=== PATIENT | male | born 1965 | race Caucasian/White ===

== ENCOUNTER 2019-06-11 08:18 | Outpatient (CLI) | payer OTHER ==
[2019-06-11 09:03] LABS: CLARITY,URINE CLEAR (Clear); COLOR,URINE YELLOW (Yellow); GLUCOSE, URINE NEGATIVE (Neg); KETONES,URINE NEGATIVE (Neg); LEUKOCYTE ESTERASE ,URINE NEGATIVE (Neg); NITRITES, URINE NEGATIVE (Neg); OCCULT BLOOD,URINE NEGATIVE (Neg); PH,URINE 6.5 (4.8-8.0); PROTEIN,URINE NEGATIVE (Neg); UROBILINOGEN,URINE 0.2 E.U/dL (0.2-1.0)
[2019-06-11 09:09] LABS: UA COLLECTION TYPE CLN CATCH MIDSTREAM
[2019-06-11 09:16] LABS: ALANINE AMINOTRANSFERASE 113 U/L (12-78); ALBUMIN 4.2 G/DL (3.4-5.0); ALBUMIN/GLOBULIN RATIO 0.9 (1.1-1.5); ALKALINE PHOSPHATASE 67 IU/L (46-116); ANION GAP 5 (8-16); ASPARTATE AMINO TRANSFERASE 53 U/L (10-37); BILIRUBIN,TOTAL 0.6 MG/DL (0.1-1.0); BLOOD UREA NITROGEN 12 MG/DL (7-18); BUN/CREATININE RATIO 10.2 (5.4-32.0); CALCIUM 9.2 MG/DL (8.5-10.1); CHLORIDE 106 MMOL/L (99-107); CHOL/HDL RATIO 2.6 (0.00-4.99); CHOLESTEROL 164 MG/DL (0-200); CREATININE 1.18 MG/DL (0.60-1.10); GLUCOSE 112 MG/DL (70-104); HDL CHOLESTEROL 63 MG/DL (35-60); LDL CHOLESTEROL 76 MG/DL (50-100); MAGNESIUM 1.7 MG/DL (1.5-2.4); POTASSIUM 4.2 MMOL/L (3.5-5.1); SODIUM 144 MMOL/L (135-145); TOTAL CARBON DIOXIDE 32.6 MMOL/L (24-32); TOTAL PROTEIN 8.9 G/DL (6.4-8.2); TRIGLYCERIDES 144 MG/DL (20-135); eGFR 64 ML/MIN
[2019-06-11 09:17] LABS: BASOPHILS # (AUTO) 0.1 X10'3 (0-0.2); BASOPHILS % (AUTO) 1.5 % (0-1); EOSINOPHILS # (AUTO) 0.6 X10'3 (0-0.9); EOSINOPHILS % (AUTO) 6.9 % (0-6); HEMATOCRIT 46.5 % (42.0-52.0); HEMOGLOBIN 16.2 g/dl (14.0-17.9); LYMPHOCYTES # (AUTO) 2.8 X10'3 (1.1-4.8); LYMPHOCYTES % (AUTO) 32.6 % (21-51); MEAN CORPUSCULAR HEMOGLOBIN 33.1 PG (27.0-31.0); MEAN CORPUSCULAR HGB CONC 34.7 g/dL (33.0-36.5); MEAN CORPUSCULAR VOLUME 95.3 FL (78-98); MONOCYTES # (AUTO) 1.2 X10'3 (0-0.9); MONOCYTES % (AUTO) 14.3 % (2-12); NEUTROPHILS # (AUTO) 3.8 X10'3 (1.8-7.7); NEUTROPHILS % (AUTO) 44.7 % (42-75); PLATELET COUNT 258 X10'3 (140-440); RED BLOOD COUNT 4.88 X10'6 (4.70-6.10); RED CELL DISTRIBUTION WIDTH 13.3 % (11.5-14.5); WHITE BLOOD COUNT 8.6 X10'3 (4.5-11.0)
[2019-06-12 11:10] LABS: ALBUMIN 4.2 g/dL (2.9-4.4); BETA GLOBULIN 1.4 g/dL (0.7-1.3); GAMMA GLOBULIN 1.7 g/dL (0.4-1.8); GLOBULIN, TOTAL 4.2 g/dL (2.2-3.9); M-SPIKE Not Observed g/dL (Not Observed); PROTEIN, TOTAL, SERUM 8.4 g/dL (6.0-8.5)
== END 2019-06-11 23:59 | disposition home or self-care (01) ==
LOC: LAB 08:18
PROVIDERS: ATTEND Family Medicine
DX: R00.2 Palpitations (principal)
CPT/HCPCS: 36415; 80053; 80061; 81003; 83735; 84155; 84165; 84402; 84403; 84439; 84443; 85025

== ENCOUNTER 2020-02-17 13:15 | Outpatient (CLI) | payer BC ==
[2020-02-17 14:13] LABS: BASOPHILS # (AUTO) 0.1 X10'3 (0-0.2); BASOPHILS % (AUTO) 0.4 % (0-1); EOSINOPHILS % (AUTO) 0.2 % (0-6); HEMATOCRIT 45.3 % (42.0-52.0); HEMOGLOBIN 15.3 g/dl (14.0-17.9); LYMPHOCYTES # (AUTO) 1.3 X10'3 (1.1-4.8); LYMPHOCYTES % (AUTO) 9.3 % (21-51); MEAN CORPUSCULAR HEMOGLOBIN 32.7 PG (27.0-31.0); MEAN CORPUSCULAR HGB CONC 33.7 g/dL (33.0-36.5); MEAN CORPUSCULAR VOLUME 96.9 FL (78-98); MEAN PLATELET VOLUME 7.9 FL (7.4-10.4); MONOCYTES # (AUTO) 1.9 X10'3 (0-0.9); NEUTROPHILS # (AUTO) 10.5 X10'3 (1.8-7.7); NEUTROPHILS % (AUTO) 76.1 % (42-75); PLATELET COUNT 224 X10'3 (140-440); RED BLOOD COUNT 4.67 X10'6 (4.70-6.10); RED CELL DISTRIBUTION WIDTH 13.3 % (11.5-14.5); WHITE BLOOD COUNT 13.7 X10'3 (4.5-11.0)
[2020-02-17 14:28] LABS: ALANINE AMINOTRANSFERASE 115 U/L (12-78); ALBUMIN 4.3 G/DL (3.4-5.0); ALKALINE PHOSPHATASE 64 IU/L (46-116); AMYLASE 66 U/L (25-115); ANION GAP 8 (8-16); ASPARTATE AMINO TRANSFERASE 51 U/L (10-37); BILIRUBIN,TOTAL 0.9 MG/DL (0.1-1.0); BLOOD UREA NITROGEN 9 MG/DL (7-18); BUN/CREATININE RATIO 8.5 (5.4-32.0); CALCIUM 9.6 MG/DL (8.5-10.1); CHLORIDE 101 MMOL/L (99-107); CREATININE 1.06 MG/DL (0.60-1.10); GLUCOSE 138 MG/DL (70-104); LIPASE 107 U/L (73-393); POTASSIUM 4.4 MMOL/L (3.5-5.1); SODIUM 138 MMOL/L (135-145); TOTAL CARBON DIOXIDE 28.8 MMOL/L (24-32); TOTAL PROTEIN 8.5 G/DL (6.4-8.2); eGFR 73 ML/MIN
[2020-02-17] MEDS ORDERED: NO HOME MEDS (19:27)
== END 2020-02-17 23:59 | disposition home or self-care (01) ==
LOC: RAD 13:15
PROVIDERS: ATTEND Family Medicine
DX: K76.0 Fatty (change of) liver, not elsewhere classified (principal); R10.13 Epigastric pain
CPT/HCPCS: 36415; 76700; 80053; 82150; 83690; 85025

== ENCOUNTER 2020-02-17 16:03 | Inpatient (IN) | payer BC ==
[~2020-02-17] VITALS: Ht 172.7 cm; Wt 85.0 kg
[2020-02-17] MEDS ORDERED: iohexol 300mg/ml 100ml inj. ONE (17:15)
[2020-02-17 17:49] LABS: EOSINOPHILS % (AUTO) 0.1 % (0-6); HEMATOCRIT 44.8 % (42.0-52.0); HEMOGLOBIN 15.4 g/dl (14.0-17.9); MEAN CORPUSCULAR HEMOGLOBIN 33.3 PG (27.0-31.0); MEAN CORPUSCULAR HGB CONC 34.3 g/dL (33.0-36.5); MEAN CORPUSCULAR VOLUME 97.1 FL (78-98); RED BLOOD COUNT 4.61 X10'6 (4.70-6.10)
[2020-02-17] MEDS ORDERED: normal saline 1000ML IV soln IVB ONE (17:50)
[2020-02-17] MEDS ORDERED: ondansetron/PF 4mg/2ml inj IV ONE (17:50)
[2020-02-17 17:51] LABS: BASOPHILS % (AUTO) 0.3 % (0-1); LYMPHOCYTES # (AUTO) 1.4 X10'3 (1.1-4.8); LYMPHOCYTES % (AUTO) 10.3 % (21-51); MEAN PLATELET VOLUME 8.1 FL (7.4-10.4); MONOCYTES % (AUTO) 14.9 % (2-12); NEUTROPHILS # (AUTO) 10.2 X10'3 (1.8-7.7); NEUTROPHILS % (AUTO) 74.4 % (42-75); PLATELET COUNT 208 X10'3 (140-440); RED CELL DISTRIBUTION WIDTH 13.3 % (11.5-14.5); WHITE BLOOD COUNT 13.7 X10'3 (4.5-11.0)
[2020-02-17 17:58] LABS: PARTIAL THROMBOPLASTIN TIME 27 SECONDS (22-32)
[2020-02-17 18:01] LABS: ALANINE AMINOTRANSFERASE 111 U/L (12-78); ALBUMIN 4.1 G/DL (3.4-5.0); ALKALINE PHOSPHATASE 59 IU/L (46-116); ANION GAP 7 (8-16); ASPARTATE AMINO TRANSFERASE 52 U/L (10-37); BLOOD UREA NITROGEN 9 MG/DL (7-18); BUN/CREATININE RATIO 8.1 (5.4-32.0); CALCIUM 9.6 MG/DL (8.5-10.1); CHLORIDE 102 MMOL/L (99-107); CREATININE 1.11 MG/DL (0.60-1.10); GLUCOSE 139 MG/DL (70-104); LIPASE 108 U/L (73-393); POTASSIUM 3.8 MMOL/L (3.5-5.1); SODIUM 138 MMOL/L (135-145); TOTAL CARBON DIOXIDE 29.3 MMOL/L (24-32); TOTAL PROTEIN 8.3 G/DL (6.4-8.2); eGFR 69 ML/MIN
[2020-02-17] MEDS: morphine 4 MG/ML inj SYRINge IV PRN ×2 (18:09→21:05)
[2020-02-17] MEDS ORDERED: morphine 4 MG/ML inj SYRINge IV ONE (19:15)
[2020-02-17] MEDS ORDERED: piperacillin/tazo 3.375gm/50ml 50 ML IV ONE (19:15)
[2020-02-17] MEDS ORDERED: NO HOME MEDS (19:27)
[2020-02-17] MEDS ORDERED: ondansetron/PF 4mg/2ml inj IV PRN (21:00)
[2020-02-17] MEDS ORDERED: potassium Cl 20 mEq SR tablet PO PRN ×2 (21:00)
[2020-02-17] MEDS ORDERED: morphine 2 MG/ML inj. syringe IV PRN (21:00)
[2020-02-17] MEDS ORDERED: magnesium hydroxide 30ml (MOM) UD suspension PO PRN (21:00)
[2020-02-17] MEDS ORDERED: potassium CL 10mEq/100ml bag 100 ML IV PRN ×2 (21:00)
[2020-02-17] MEDS ORDERED: mag hydrox/Alum hydrox/simeth 30ml oral suspension PO PRN (21:00)
[2020-02-17] MEDS: normal saline 1000ml 1,000 ML IV SCH ×2 (21:05→22:55)
--- NOTE | 2020-02-17 22:40 | NUR ---
Received report from Vinnie LOVE from the ER. Patient arrived on unit chandrika wheelchair at 2230, s.l., room air, vss, a/o, no signs of distress, will continue to monitor
[2020-02-17] MEDS: morphine 2 MG/ML inj. syringe IV PRN (22:57)
[2020-02-17] MEDS: piperacillin/tazo 3.375gm/50ml 50 ML IV SCH (23:39)
[2020-02-18] VITALS (17 sets, daily range): BP systolic 119–162; BP diastolic 71–95
[2020-02-18] MEDS: morphine 2 MG/ML inj. syringe IV PRN ×4 (03:53→20:46)
[2020-02-18 06:09] LABS: BASOPHILS % (AUTO) 0.2 % (0-1); EOSINOPHILS % (AUTO) 0.2 % (0-6); HEMATOCRIT 43.3 % (42.0-52.0); HEMOGLOBIN 14.5 g/dl (14.0-17.9); LYMPHOCYTES # (AUTO) 1.4 X10'3 (1.1-4.8); LYMPHOCYTES % (AUTO) 10.9 % (21-51); MEAN CORPUSCULAR HEMOGLOBIN 32.5 PG (27.0-31.0); MEAN CORPUSCULAR HGB CONC 33.4 g/dL (33.0-36.5); MEAN CORPUSCULAR VOLUME 97.2 FL (78-98); MEAN PLATELET VOLUME 8.3 FL (7.4-10.4); MONOCYTES % (AUTO) 16.1 % (2-12); NEUTROPHILS # (AUTO) 9.2 X10'3 (1.8-7.7); NEUTROPHILS % (AUTO) 72.6 % (42-75); PLATELET COUNT 182 X10'3 (140-440); RED BLOOD COUNT 4.46 X10'6 (4.70-6.10); RED CELL DISTRIBUTION WIDTH 13.4 % (11.5-14.5); WHITE BLOOD COUNT 12.7 X10'3 (4.5-11.0)
[2020-02-18 06:14] LABS: PARTIAL THROMBOPLASTIN TIME 28 SECONDS (22-32)
--- NOTE | 2020-02-18 06:25 | NUR ---
Received report from Alexa LOVE, [facility] care.
[2020-02-18 06:34] LABS: ALANINE AMINOTRANSFERASE 120 U/L (12-78); ALBUMIN 3.6 G/DL (3.4-5.0); ALBUMIN/GLOBULIN RATIO 0.9 (1.1-1.5); ALKALINE PHOSPHATASE 55 IU/L (46-116); ANION GAP 11 (8-16); ASPARTATE AMINO TRANSFERASE 65 U/L (10-37); BILIRUBIN,TOTAL 1.1 MG/DL (0.1-1.0); BLOOD UREA NITROGEN 11 MG/DL (7-18); BUN/CREATININE RATIO 9.6 (5.4-32.0); CALCIUM 9.4 MG/DL (8.5-10.1); CHLORIDE 105 MMOL/L (99-107); CREATININE 1.15 MG/DL (0.60-1.10); GLUCOSE 127 MG/DL (70-104); SODIUM 141 MMOL/L (135-145); TOTAL CARBON DIOXIDE 25.2 MMOL/L (24-32); TOTAL PROTEIN 7.7 G/DL (6.4-8.2); eGFR 66 ML/MIN
--- NOTE | 2020-02-18 06:41 | NUR ---
Problems reprioritized. Patient report given, questions answered & plan of care reviewed with Bren LOVE.
[2020-02-18] MEDS ORDERED: BUPIVAcaine/PF 2.5 mg/ml (0.25%) 30ml vial ONE (07:08)
[2020-02-18] MEDS ORDERED: ceFAZolin 1000mg inj ONE (07:08)
[2020-02-18] MEDS ORDERED: INDOCYANINE GREEN 25 MG/10 ML VIAL IV ONE (07:15)
[2020-02-18] MEDS ORDERED: ondansetron/PF 4mg/2ml inj IV PRN ×3 (07:30→12:00)
[2020-02-18] MEDS ORDERED: meperidine/PF 25mg/ml syringe IV PRN ×5 (07:30→10:40)
[2020-02-18] MEDS ORDERED: ringers solution, lacted 1,000 ML IV SCH ×2 (07:30→10:40)
[2020-02-18] MEDS ORDERED: proCHLORperazine 10 MG/2 ml inj IV PRN ×2 (07:30→10:40)
[2020-02-18] MEDS ORDERED: morphine 2 MG/ML inj. syringe IV PRN ×2 (07:30→10:40)
[2020-02-18] MEDS ORDERED: morphine 4 MG/ML inj SYRINge IV PRN ×2 (07:30→10:40)
[2020-02-18] MEDS: K and/or MAG REPLACEMENT MC SCH ×3 (08:00→20:00)
[2020-02-18] MEDS: piperacillin/tazo 3.375gm/50ml 50 ML IV SCH ×3 (08:00→23:41)
[2020-02-18 08:49] LABS: PLATELET ESTIMATE NORMAL; TOTAL CELLS COUNTED 100
--- NOTE | 2020-02-18 09:04 | NUR ---
OR transported patient for surgery.
[2020-02-18] MEDS ORDERED: sevoflurane 250ml liquid IH ONE (09:32)
[2020-02-18] MEDS ORDERED: midazolam 2 mg/2 ml injection ONE (09:35)
[2020-02-18] MEDS ORDERED: rocuronium 10mg/ml inj IV ONE (09:36)
[2020-02-18] MEDS ORDERED: propofol inj 20 ML IV ONE (09:36)
[2020-02-18] MEDS ORDERED: fentaNYL /PF 50mcg/ml 5ml ampule ONE (09:36)
[2020-02-18] MEDS ORDERED: magnesium 4gm in 100ml NS 100 ML IV PRN (09:40)
[2020-02-18] MEDS ORDERED: magnesium Cl slow-release 64mg tablet PO PRN (09:40)
[2020-02-18] MEDS ORDERED: FLU VACC QS2020-21(6MOS UP)/PF 60 MCG/0.5 ML SYRINGE IMVAC ONE (10:00)
[2020-02-18] MEDS ORDERED: pneumococcal 23-VAL P-sac vacc 25 mcg/0.5ml vial IMVAC ONE (10:00)
[2020-02-18] MEDS ORDERED: glycopyrrolate 0.2mg/ml inj ONE (10:46)
[2020-02-18] MEDS ORDERED: neostigmine methylsulfate 1 MG/ML 10ml vial ONE (10:46)
--- NOTE | 2020-02-18 11:28 | NUR ---
Received from OR via , accompanied by Anesthesiologist DR GALVAN and report given by Anesthesiolgist. AWAKENS TO VOICE. VITALS STABLE. DRESSINGS DI. BYRON PAIN. ABD SOFT. KI WITH SM AMNT IN BULB.
[2020-02-18] MEDS: meperidine/PF 25mg/ml syringe IV PRN ×2 (12:08→12:20)
--- NOTE | 2020-02-18 12:17 | NUR ---
Received report from geothermal operations engineer Terry.
--- NOTE | 2020-02-18 12:28 | NUR ---
Report called to receiving nurse. Transferred via BED Belongings . Special Issues communicated to receiving nurse. AWAKE AND ORIENTED. VITALS STABLE. DRESSINGS DI. STATES PAIN IMPROVING. TO SURGICAL RM 355A AT THIS TIME.
--- NOTE | 2020-02-18 12:30 | NUR ---
Patient arrrived back to room at this time. POST OP VS initiated.
[2020-02-18] MEDS: normal saline 1000ml 1,000 ML IV SCH ×2 (14:37→23:39)
[2020-02-18] MEDS: HYDROcodone/acetaminophen 10/325mg tab PO PRN (15:44)
[2020-02-18] MEDS: acetaminophen 325mg tablet PO PRN ×2 (17:28→23:41)
--- NOTE | 2020-02-18 18:31 | NUR ---
Gave report to Flor LOVE, transferred care.
--- NOTE | 2020-02-18 19:00 | NUR ---
I have received report from Bren LOVE and had the opportunity to ask questions and assume patient care.
[2020-02-18] MEDS: lactobacillus rhamnosus 10,000 MMU CELLS/CAPSULE PO SCH (20:44)
[2020-02-19] VITALS: BP 113/79
[2020-02-19] MEDS: HYDROcodone/acetaminophen 10/325mg tab PO PRN ×2 (02:28→10:45)
[2020-02-19 04:30] VITALS: BP 133/81
[2020-02-19 05:45] LABS: BASOPHILS % (AUTO) 0.3 % (0-1); EOSINOPHILS % (AUTO) 0.2 % (0-6); HEMATOCRIT 38.1 % (42.0-52.0); HEMOGLOBIN 13.2 g/dl (14.0-17.9); LYMPHOCYTES # (AUTO) 1.3 X10'3 (1.1-4.8); LYMPHOCYTES % (AUTO) 12.9 % (21-51); MEAN CORPUSCULAR HEMOGLOBIN 33.9 PG (27.0-31.0); MEAN CORPUSCULAR HGB CONC 34.6 g/dL (33.0-36.5); MEAN CORPUSCULAR VOLUME 97.9 FL (78-98); MEAN PLATELET VOLUME 8.4 FL (7.4-10.4); MONOCYTES # (AUTO) 1.7 X10'3 (0-0.9); MONOCYTES % (AUTO) 16.5 % (2-12); NEUTROPHILS # (AUTO) 7.2 X10'3 (1.8-7.7); NEUTROPHILS % (AUTO) 70.1 % (42-75); PLATELET COUNT 150 X10'3 (140-440); RED BLOOD COUNT 3.89 X10'6 (4.70-6.10); RED CELL DISTRIBUTION WIDTH 13.1 % (11.5-14.5); WHITE BLOOD COUNT 10.3 X10'3 (4.5-11.0)
[2020-02-19] MEDS: morphine 2 MG/ML inj. syringe IV PRN (05:53)
[2020-02-19 05:58] LABS: ALANINE AMINOTRANSFERASE 162 U/L (12-78); ALBUMIN 2.7 G/DL (3.4-5.0); ALBUMIN/GLOBULIN RATIO 0.7 (1.1-1.5); ALKALINE PHOSPHATASE 50 IU/L (46-116); ANION GAP 8 (8-16); ASPARTATE AMINO TRANSFERASE 108 U/L (10-37); BILIRUBIN,TOTAL 1.2 MG/DL (0.1-1.0); BLOOD UREA NITROGEN 10 MG/DL (7-18); BUN/CREATININE RATIO 9.2 (5.4-32.0); CALCIUM 8.8 MG/DL (8.5-10.1); CHLORIDE 104 MMOL/L (99-107); CREATININE 1.09 MG/DL (0.60-1.10); GLUCOSE 115 MG/DL (70-104); MAGNESIUM 1.6 MG/DL (1.5-2.4); POTASSIUM 3.6 MMOL/L (3.5-5.1); SODIUM 139 MMOL/L (135-145); TOTAL CARBON DIOXIDE 26.7 MMOL/L (24-32); TOTAL PROTEIN 6.7 G/DL (6.4-8.2); eGFR 70 ML/MIN
--- NOTE | 2020-02-19 06:22 | NUR ---
Problems reprioritized. Patient report given, questions answered & plan of care reviewed with Carla LOVE.
--- NOTE | 2020-02-19 06:37 | NUR ---
Patient in room [facility]. I have received report from IVAN Ray and had the opportunity to ask questions and assume patient care.
[2020-02-19] MEDS: piperacillin/tazo 3.375gm/50ml 50 ML IV SCH (07:12)
[2020-02-19 07:13] LABS: TOTAL CELLS COUNTED 100
[2020-02-19 07:14] LABS: PLATELET ESTIMATE NORMAL
[2020-02-19 08:00] VITALS: BP 123/79
[2020-02-19] MEDS: K and/or MAG REPLACEMENT MC SCH ×2 (08:00)
[2020-02-19] MEDS: lactobacillus rhamnosus 10,000 MMU CELLS/CAPSULE PO SCH (10:46)
--- NOTE | 2020-02-19 11:45 | NUR ---
KI removed per Dr Dee order, catheter tip intact. 20 ml of serosanguineous collected. clean dressing applied. Pt tolerated procedure well.
[2020-02-19 12:29] VITALS: BP 134/80
[2020-02-19] MEDS ORDERED: LACT1CAP26 PO (12:50)
[2020-02-19] MEDS ORDERED: PSYL0.4C2 PO (12:50)
[2020-02-19] MEDS ORDERED: AMOX-419 PO (12:50)
[2020-02-19] MEDS ORDERED: HYDR-4383 PO (12:50)
--- NOTE | 2020-02-19 14:58 | NUR ---
Pt discharge home inn stable condition. Tolerating regular diet well. ambulated ad malcolm around the floor. Discharge and medication instructions given to pt. IV removed prior discharge. No drainage noted after KI removal. Pt was escorted to main lobby on W/C. Left the facility via private vehicle accompanied by family member.
== END 2020-02-19 14:22 | disposition home or self-care (01) | DRG 419 ==
LOC: ER 16:03 → ED HOLD 20:59 → SUR 3N 22:57
PROVIDERS: ADMIT Internal Medicine; ATTEND Surgery
PROC: BW211ZZ Computerized Tomography (CT Scan) of Abdomen and Pelvis using Low Osmolar Contrast (ICD-10-PCS; 2020-02-17)
PROC: 8E0W4CZ Robotic Assisted Procedure of Trunk Region, Percutaneous Endoscopic Approach (ICD-10-PCS; 2020-02-18)
PROC: 0FT44ZZ Resection of Gallbladder, Percutaneous Endoscopic Approach (ICD-10-PCS; principal; 2020-02-18 09:32)
DX: K80.00 Calculus of gallbladder with acute cholecystitis without obstruction (principal); E78.00 Pure hypercholesterolemia, unspecified; I10 Essential (primary) hypertension; J45.909 Unspecified asthma, uncomplicated; E78.5 Hyperlipidemia, unspecified
CPT/HCPCS: 96365; 96375; 99285; Z7506; Z7508; 36415; 74177; 80053; 83690; 83735; 85007; 85025; 85610; 85730; 87081; 93005; A4215; A4618; A6402; A7000; G0378; J0690; J2175; J2250; J2270; J2405; J2543; J2704; J2710; J3010; J3490; J7030; J7120; Q9967